=== PATIENT | female | born 1960 ===

== ENCOUNTER 2017-04-01 20:38 | Inpatient (IN) | payer MEDICAID, OTHER ==
[2017-04-01 21:16] LABS: BASO # 0.1 K/uL (0.0-0.2); BASO % 1.2 % (0.0-2.0); EOS # 0.3 K/uL (0.0-0.7); EOS % 2.7 % (0.0-4.0); HEMATOCRIT 43.7 % (34.0-47.0); LYMPH # 3.1 K/uL (1.0-4.3); LYMPH % 32.6 % (20.0-40.0); MEAN CELL VOLUME 88.2 fl (81.0-99.0); MEAN CORPUSCULAR HEMOGLOBIN 29.5 pg (27.0-31.0); MEAN CORPUSCULAR HGB CONC 33.4 g/dL (33.0-37.0); MEAN PLATELET VOLUME 9.5 fl (7.2-11.7); MONO # 0.9 K/uL (0.0-0.8); MONO % 9.3 % (0.0-10.0); NEUT # 5.1 K/uL (1.8-7.0); NEUT % 54.2 % (50.0-75.0); NRBC % 0.3 % (0.0-0.0); RED CELL DISTRIBUTION WIDTH 13.4 % (11.5-14.5); WHITE BLOOD COUNT 9.5 K/uL (4.8-10.8)
[2017-04-01 21:32] LABS: ALB/GLOB RATIO 1.4 (1.0-2.1); ALKALINE PHOSPHATASE 124 U/L (38-126); ALT/SGPT 53 U/L (9-52); AST/SGOT 38 U/L (14-36); BILIRUBIN,TOTAL 0.4 mg/dl (0.2-1.3); BLOOD UREA NITROGEN 17 mg/dl (7-17); CALCIUM 9.6 mg/dL (8.4-10.2); CARBON DIOXIDE 22 mmol/L (22-30); CHLORIDE 107 mmol/L (98-107); CHOLESTEROL 171 mg/dL (0-199); GFR AFRICAN-AMERICAN > 60; GLUCOSE,RANDOM 116 mg/dL (65-105); SODIUM 145 mmol/l (132-148)
[2017-04-01 21:33] LABS: PARTIAL THROMBOPLASTIN TIME 32.7 Seconds (25.6-37.1)
--- NOTE | 2017-04-01 22:07 | ED PDOC ---
"HPI:STROKE - Time Time: 20:49 - Historian Historian: Patient, Family - Chief Complaint Chief Complaint: Facial droop (right sided), other (Headache) - Onset Date: 03/31/17 Onset: Yesterday (Yesterday evening) - Timing Timing: Currently Symptomatic - Notes: Notes:: Patient is a 56 y/o female with a past medical history of hypertension for which she is not currently taking medications, who presents to the ED complaining of headache and right sided facial droop since last night. She denies any motor weakness or sensory deficits in extremities, vision changes, speech changes, chest pain, or shortness of breath. PMD: Non [facility] Provider, NIHSS Stroke Scale - Date/Time Evaluation Performed Date Performed: 04/01/17 When Was NIHSS Performed: Baseline - How Severe is the Stroke Level of Consciousness: 0=Alert LOC to Questions: 0=Both comments correct LOC to commands: 0=Obeys both correctly Best Gaze: 0=Normal Visual: 0=No visual loss Facial: 2=Partial (lower face paralysis) Motor Arm - Left: 0=No drift Motor Arm - Right: 0=No drift Motor Leg - Left: 0=No drift Motor Leg - Right: 0=No drift Limb Ataxia: 0=Absent Sensory: 0=Normal Best Language: 0=No aphasia Dysarthia: 0=Normal articulation Extinction & Inattention (Neglect): 0=Normal, no object Score: 2 rTPA Inclusion/Exclusion - Refusal of Treatment Patient Refused Treatment: No - Inclusion Criteria for Altepase Patient is 18 years or Older: Yes The Clinical Diagnosis of Ischemic Stroke That is Causing a Potentially Disabling Neurological Deficit: No Time of Onset is Well Established to be Less Than 270 Minute Before Treatment Would Begin: No Risk/Benefit Discussed With Patient/Family Member Present: No Past Medical History Reviewed: Historical Data, Nursing Documentation, Vital Signs Vital Signs: Last Vital Signs Temp 98.1 F 04/01/17 20:49 Pulse 69 04/01/17 21:25 Resp 16 04/01/17 21:25 BP 174/70 H 04/01/17 21:25 Pulse Ox 100 04/01/17 21:25 - Medical History PMH: HTN - Surgical History Surgical History: No Surg Hx - Family History Family History: States: No Known Family Hx - Social History Current smoker - smoking cessation education provided: No Alcohol: None Drugs: Denies - Home Medications Home Medications: Ambulatory Orders Medication Instructions Recorded No Known Home Med 04/01/17 - Allergies Allergies/Adverse Reactions: Allergies Allergy/AdvReac Type Severity Reaction Status Date / Time No Known Allergies Allergy Verified 04/01/17 20:52 Review of Systems ROS Statement: Except As Marked, All Systems Reviewed And Found Negative Eyes: Negative for: Vision Change Cardiovascular: Negative for: Chest Pain Respiratory: Negative for: Shortness of Breath Neurological: Positive for: Headache, Other (Facial Droop, negative motor and sensory deficits in extremities). Negative for: Weakness, Change in Speech Physical Exam - Reviewed Nursing Documentation Reviewed: Yes Vital Signs Reviewed: Yes - Physical Exam Appears: Positive for: Non-toxic, No Acute Distress Head Exam: Positive for: ATRAUMATIC, NORMAL INSPECTION, NORMOCEPHALIC Skin: Positive for: Normal Color, Warm, Dry Eye Exam: Positive for: Normal appearance, EOMI, PERRL Neck: Positive for: Normal, Painless ROM, Supple Cardiovascular/Chest: Positive for: Regular Rate, Rhythm, Murmur Respiratory: Positive for: Normal Breath Sounds. Negative for: Respiratory Distress Gastrointestinal/Abdominal: Positive for: Normal Exam, Soft. Negative for: Tenderness Back: Positive for: Normal Inspection. Negative for: L CVA Tenderness, R CVA Tenderness, Vertebral Tenderness Extremity: Positive for: Normal ROM. Negative for: Pedal Edema, Deformity Neurologic/Psych: Positive for: Alert, rent collector II-XII (normal and intact), Oriented (x3), Gait (normal gait), Facial Droop (Right sided), Other (Right eyelid lag, able to furrow eyebrow on right side). Negative for: Motor/Sensory Deficits - Laboratory Results Result Diagrams: 04/01/17 21:05 04/01/17 21:05 - ECG O2 Sat by Pulse Oximetry: 100 (RA) Pulse Ox Interpretation: Normal Medical Decision Making Medical Decision Making: Time: 2053 Initial Impression: Hannah palsy vs Cerebrovascular accident Initial Plan: -Type and screen -CT Head W/O Contrast -EKG -CMP -Hemoglobin A1C -Lipid Panel -Troponin -CBC -Patient/PTT -Chest XR -Patient Access Associate -IV Insertion -ED Obtain Labs -Glucose, Blood, POC -Nursing Swallow Screen -Vital signs Q15Min 20:24 CT Head Results FINDINGS: Brain: Unremarkable. No hemorrhage. No significant white matter disease. No edema. Ventricles: Unremarkable. No ventriculomegaly. Bones/joints: Unremarkable. No acute fracture. Soft tissues: Unremarkable. Sinuses: Unremarkable as visualized. No acute sinusitis. Mastoid air cells: Unremarkable as visualized. No mastoid effusion. RICARDO CARVAJAL | Preliminary Radiology Report CASHIER RECEPTIONIST (QA) DISCREPANCY? If there is a discrepancy between the preliminary and final interpretation, please notify ad via [email or web address]. If you do not have access to our QA portal, call our QA team at [phone] CONFIDENTIALITY STATEMENT This report is intended only for the use of the referring physician, and only in accordance with law, If you received this in error, call [phone] Page 2 of 2 IMPRESSION: No acute intracranial finding. 21:51 -Call Neurology consult -Admit -Inpatient/Obs -Neurology consult routine -MRI Brain W & WO contrast -Aspirin 162 mg PO -Acetaminophen 650mg PO -Case discussed with Dr. Vargas who agrees that case is possibly Mojica's Palsy, but given hypertension will require MRI.- -Patient to be admitted to Dr. Li in observation telemetry Scribe Attestation: Documented by Jessica Stanley, acting as a scribe for Dani Phan MD Provider Scribe Attestation: All medical record entries made by the Scribe were at my direction and personally dictated by me. I have reviewed the chart and agree that the record accurately reflects my personal performance of the history, physical exam, medical decision making, and the department course for this patient. I have also personally directed, reviewed, and agree with the discharge instructions and disposition. Disposition - Clinical Impression Clinical Impression: Facial droop - Patient ED Disposition Is Patient to be Admitted: Yes - Disposition Disposition Time: 21:57 Condition: STABLE - Pt Status Changed To: Hospital Disposition Of: Observation"
--- NOTE | 2017-04-01 22:08 | CP.PCM.HP ---
History of Present Illness - History of Present Illness History of Present Illness: PCP: None Chief Complaint: Headache and right facial droop HPI: 56 years old female with hx of HTN, non compliant with medication comes with 2 days of continuous right sided headache with associated drooping of the right side of the face, with numbness of the right side tongue with no tasting of the food at that section. The right eye is dry with pain to the anterior region of the right ear along with the ear itself. She also refers some burning pain to the upper right back radiating to the right side of the head and the right ear.No weakness to the upper nor lower extremities, no nausea , vomits, fever, Chest pain. in the ED the NIHSS score was 2. PMH: HTN, Noncompliance with medication PSH: No Surgical Hx SH: No Illegal drug use; No Smoking of Cigarettes; No Alcohol use; Live with family FH: States: No Known Family Hx Allergies: NKDA Medication: None Present on Admission - Present on Admission Any Indicators Present on Admission: No History of DVT/PE: No History of Uncontrolled Diabetes: No Urinary Catheter: No Decubitus Ulcer Present: No Review of Systems - Constitutional Constitutional: Headache. absent: Anorexia, Chills, Fatigue, Fever, Lethargy, Weakness - EENT Eyes: Requires Corrective Lenses. absent: Diplopia, Floaters, Sees Flashes Ears: Ear Pain. absent: Decreased Hearing, Tinnitus Nose/Mouth/Throat: absent: Epistaxis, Nasal Congestion, Nasal Discharge Additional comments: Pain to the right ear and the Anterior to the right ear. No tast of food to the right side of the tongue - Cardiovascular Cardiovascular: absent: Chest Pain, Dyspnea, Edema - Respiratory Respiratory: absent: Cough, Dyspnea, Wheezing, Stridor - Gastrointestinal Gastrointestinal: Constipation. absent: Diarrhea, Nausea, Vomiting - Genitourinary Genitourinary: absent: Dysuria, Flank Pain, Hematuria, Urinary Frequency - Musculoskeletal Musculoskeletal: absent: Arthralgias, Back Pain, Muscle Cramps Additional comments: Burning pain from the upper right back radiating to the right head and ear. - Integumentary Integumentary: absent: Pruritus, Rash, Skin Ulcer, Sores, Striae, Swelling - Neurological Neurological: Focal Weakness, Headaches. absent: Confusion, Loss of Vision, Weakness Additional comments: Right facial weakness - Psychiatric Psychiatric: absent: Anxiety, Depression, Panic Attacks - Endocrine Endocrine: absent: Palpitations, Polydipsia, Polyphagia, Polyuria - Hematologic/Lymphatic Hematologic: absent: Easy Bleeding, Easy Bruising Past Patient History - Past Medical History & Family History Past Medical History?: Yes - Past Social History Smoking Status: Never Smoked Chewing Tobacco Use: No Cigar Use: No Alcohol: None Drugs: Denies Home Situation {Lives}: With Family - CARDIAC Hx Hypertension: Yes - PULMONARY Hx Respiratory Disorders: No - NEUROLOGICAL Hx Neurological Disorder: No - HEENT Hx HEENT Problems: No - RENAL Hx Chronic Kidney Disease: No - ENDOCRINE/METABOLIC Hx Endocrine Disorders: No - HEMATOLOGICAL/ONCOLOGICAL Hx Blood Disorders: No - INTEGUMENTARY Hx Dermatological Problems: No - MUSCULOSKELETAL/RHEUMATOLOGICAL Hx Musculoskeletal Disorders: No - GASTROINTESTINAL Hx Gastrointestinal Disorders: No - GENITOURINARY/GYNECOLOGICAL Hx Genitourinary Disorders: No - PSYCHIATRIC Hx Psychophysiologic Disorder: No Hx Substance Use: No - SURGICAL HISTORY Hx Surgeries: No - ANESTHESIA Hx Anesthesia: No Meds Allergies/Adverse Reactions: Allergies Allergy/AdvReac Type Severity Reaction Status Date / Time No Known Allergies Allergy Verified 04/01/17 20:52 Physical Exam - Constitutional Appears: No Acute Distress - Head Exam Head Exam: ATRAUMATIC, NORMAL INSPECTION, NORMOCEPHALIC - Eye Exam Eye Exam: EOMI, Normal appearance Pupil Exam: NORMAL ACCOMODATION, PERRL - ENT Exam ENT Exam: Mucous Membranes Moist, Normal Exam Additional comments: Pain to the anterior region of the right ear on palpation. The right tympanic midbrain appears to bulge outward. No rash to the right side of face nor neck - Neck Exam Neck exam: Positive for: Full Rom, Normal Inspection - Respiratory Exam Respiratory Exam: Clear to Auscultation Bilateral. absent: Rales, Rhonchi, Wheezes - Cardiovascular Exam Cardiovascular Exam: REGULAR RHYTHM, RRR, +S1, +S2 - GI/Abdominal Exam GI & Abdominal Exam: Normal Bowel Sounds, Soft. absent: Mass, Organomegaly, Tenderness - Rectal Exam Rectal Exam: Deferred - Extremities Exam Extremities exam: Positive for: full ROM, normal inspection. Negative for: joint swelling Additional comments: Right knee pain, no edema - Back Exam Back exam: NORMAL INSPECTION. absent: CVA tenderness (L), CVA tenderness (R) - Neurological Exam Neurological exam: Alert, CN II-XII Intact, Oriented x3, Reflexes Normal - Psychiatric Exam Psychiatric exam: Normal Affect, Normal Mood - Skin Skin Exam: Dry, Intact, Normal Color, Warm Results - Vital Signs Recent Vital Signs: Last Vital Signs Temp 98.1 F 04/01/17 20:49 Pulse 69 04/01/17 21:25 Resp 16 04/01/17 21:25 BP 174/70 H 04/01/17 21:25 Pulse Ox 100 04/01/17 22:07 - Labs Result Diagrams: 04/01/17 21:05 04/01/17 21:05 Labs: Laboratory Results - last 24 hr 04/01/17 04/01/17 04/01/17 21:05 21:05 21:05 WBC 9.5 RBC 4.96 Hgb 14.6 Hct 43.7 MCV 88.2 MCH 29.5 MCHC 33.4 RDW 13.4 Plt Count 275 MPV 9.5 Neut % (Auto) 54.2 Lymph % (Auto) 32.6 [place] % (Auto) 9.3 Eos % (Auto) 2.7 Baso % (Auto) 1.2 Neut # 5.1 Lymph # 3.1 [place] # 0.9 H Eos # 0.3 Baso # 0.1 PT 10.6 INR 0.9 APTT 32.7 Sodium 145 Potassium 4.0 Chloride 107 Carbon Dioxide 22 Anion Gap 21 H BUN 17 Creatinine 0.7 Est GFR ( Amer) > 60 Est GFR (Non-Af Amer) > 60 Random Glucose 116 H Calcium 9.6 Total Bilirubin 0.4 AST 38 H ALT 53 H Alkaline Phosphatase 124 Troponin I < 0.0120 Total Protein 8.0 Albumin 4.6 Globulin 3.3 Albumin/Globulin Ratio 1.4 Triglycerides 244 H Cholesterol 171 LDL Cholesterol Direct 101 HDL Cholesterol 47 - Imaging and Cardiology CT scan - head Status: Image reviewed by me, Report reviewed by me Additional comment: FINDINGS: Brain: Unremarkable. No hemorrhage. No significant white matter disease. No edema. Ventricles: Unremarkable. No ventriculomegaly. Bones/joints: Unremarkable. No acute fracture. Soft tissues: Unremarkable. Sinuses: Unremarkable as visualized. No acute sinusitis. Mastoid air cells: Unremarkable as visualized. No mastoid effusion. IMPRESSION: No acute intracranial finding. Chest x-ray Status: Image reviewed by me Additional comment: Poor inspiration No infiltrate Assessment & Plan - Assessment and Plan (Free Text) Assessment: #. Accelerating Hypertension #. Right facial Droop #. Headache Plan: 56 years old female with hx of HTN, non compliant with medication comes with 2 days of continuous right sided headache with associated drooping of the right side of the face, with numbness of the right side tongue with no tasting of the food at that section. The right eye is dry with pain to the anterior region of the right ear along with the ear itself. #. Accelerating Hypertension in patient who is noncompliant with medication - labetalol 10 mg IV ordered. - Norvasc 5mg Daily - follow Blood Pressure #. 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 Headache probably due to the Hypertension and thee Mojica's Palsy - Treat HTN and Mojica's palsy - Tylenol #. DVT Prophylaxis with Lovenox #. Code Status: Full - Date & Time Date: 04/01/17 Time: 22:08
[2017-04-01] MEDS ORDERED: Labetalol 5 mg/ml Inj 20ML IVP STA (23:02)
[2017-04-02] MEDS ORDERED: Influenza Vaccine 18yr & older 0.5 ML/45 MCG SYR IM ONE (06:30)
[2017-04-02] MEDS ORDERED: Pneumococcal 23-Valent Vaccine IM ONE (06:30)
[2017-04-02 07:25] LABS: BASO % 0.4 % (0.0-2.0); EOS % 0.1 % (0.0-4.0); HEMATOCRIT 42.7 % (34.0-47.0); LYMPH # 1.3 K/uL (1.0-4.3); MEAN CELL VOLUME 88.1 fl (81.0-99.0); MEAN CORPUSCULAR HEMOGLOBIN 29.8 pg (27.0-31.0); MEAN CORPUSCULAR HGB CONC 33.8 g/dL (33.0-37.0); MEAN PLATELET VOLUME 9.5 fl (7.2-11.7); MONO # 0.2 K/uL (0.0-0.8); MONO % 1.6 % (0.0-10.0); NEUT # 7.9 K/uL (1.8-7.0); NEUT % 83.9 % (50.0-75.0); NRBC % 0.2 % (0.0-0.0); RED CELL DISTRIBUTION WIDTH 13.5 % (11.5-14.5); WHITE BLOOD COUNT 9.4 K/uL (4.8-10.8)
[2017-04-02 07:40] LABS: BLOOD UREA NITROGEN 13 mg/dl (7-17); CALCIUM 9.4 mg/dL (8.4-10.2); CARBON DIOXIDE 24 mmol/L (22-30); CHLORIDE 107 mmol/L (98-107); GFR AFRICAN-AMERICAN > 60; GLUCOSE,RANDOM 140 mg/dL (65-105); POTASSIUM 3.8 MMOL/L (3.6-5.0); SODIUM 146 mmol/l (132-148)
[2017-04-02 08:08] LABS: THYROID STIMULATING HORMONE 5.22 mIU/ML (0.46-4.68)
--- NOTE | 2017-04-02 08:35 | CT ---
PROCEDURE: CT HEAD WITHOUT CONTRAST. HISTORY: code stroke COMPARISON: None available. TECHNIQUE: Axial computed tomography images were obtained through the head/brain without intravenous contrast. Radiation dose: Total exam DLP = 817.28 mGy-cm. This CT exam was performed using one or more of the following dose reduction techniques: Automated exposure control, adjustment of the mA and/or kV according to patient size, and/or use of iterative reconstruction technique. FINDINGS: HEMORRHAGE: No intracranial hemorrhage. BRAIN: No mass effect or edema. The damon-white matter differentiation appears intact. Please note that MRI with diffusion imaging is more sensitive in the detection of acute ischemic event. VENTRICLES: No hydrocephalus. CALVARIUM: Unremarkable. PARANASAL SINUSES: Unremarkable as visualized. No significant inflammatory changes. MASTOID AIR CELLS: Unremarkable as visualized. No inflammatory changes. OTHER FINDINGS: None. IMPRESSION: No acute intracranial pathology identified. Preliminary impression was provided by virtual radiologic.
[2017-04-02] MEDS: Enoxaparin 40 mg Syringe SC SCH (08:54)
--- NOTE | 2017-04-02 09:25 | RAD ---
HISTORY: facial droop, weakness COMPARISON: None available. TECHNIQUE: Chest, one view. FINDINGS: Examination limited by habitus and hypoinflation. LUNGS: Mild interstitial prominence appears consistent with vascular crowding due to hypoinflation rather than mild pulmonary venous congestion. Mild biapical pleural thickening. No focal consolidation. Please note that chest x-ray has limited sensitivity for the detection of pulmonary masses. PLEURA: No significant pleural effusion identified. No definite pneumothorax . CARDIOVASCULAR: Heart size appears top normal. OSSEOUS STRUCTURES: No acute osseous abnormality identified. VISUALIZED UPPER ABDOMEN: Unremarkable. OTHER FINDINGS: None. IMPRESSION: Mild interstitial prominence appears consistent with vascular crowding due to hypoinflation rather than mild pulmonary venous congestion. Mild biapical pleural thickening.
--- NOTE | 2017-04-02 11:25 | CP.PCM.PN ---
Subjective - Date & Time of Evaluation Date of Evaluation: 04/02/17 Time of Evaluation: 11:00 - Subjective Subjective: patient was seen and examined bedside. Complains of headache over right side of her head , frontal Denies any visual problems, earache, CP, SOB With right facial droop and right pre auricular area increased sensitivity to touch and pain BP slightly elevated 166/79,afebrile Objective - Vital Signs/Intake and Output Vital Signs (last 24 hours): Temp Pulse Resp BP Pulse Ox 98.3 F 79 20 177/80 H 97 04/02/17 08:00 04/02/17 08:53 04/02/17 08:00 04/02/17 08:53 04/02/17 08:00 - Medications Medications: Current Medications Acetaminophen (Tylenol 325mg Tab) 650 mg PO Q4 PRN PRN Reason: Headache Amlodipine Besylate (Norvasc) 5 mg PO DAILY [facility] Last Admin: 04/02/17 08:53 Dose: 5 mg Enoxaparin Sodium (Lovenox) 40 mg SC DAILY [facility] PRN Reason: Protocol Last Admin: 04/02/17 08:54 Dose: 40 mg Prednisone (Prednisone Tab) 60 mg PO DAILY [facility] Stop: 04/07/17 09:01 Last Admin: 04/02/17 08:54 Dose: 60 mg - Labs Labs: 04/02/17 06:00 04/02/17 06:00 PT 10.6 Seconds (9.8-13.1) 04/01/17 21:05 INR 0.9 (0.9-1.2) 04/01/17 21:05 APTT 32.7 Seconds (25.6-37.1) 04/01/17 21:05 - Constitutional Appears: Non-toxic, No Acute Distress - Head Exam Head Exam: ATRAUMATIC, NORMOCEPHALIC Additional comments: right facial droop - Eye Exam Eye Exam: EOMI, PERRL Pupil Exam: NORMAL ACCOMODATION - ENT Exam ENT Exam: Mucous Membranes Moist, Normal Exam - Neck Exam Neck Exam: Full ROM, Normal Inspection - Respiratory Exam Respiratory Exam: Clear to Ausculation Bilateral, NORMAL BREATHING PATTERN. absent: Rales, Rhonchi, Wheezes - Cardiovascular Exam Cardiovascular Exam: REGULAR RHYTHM, RRR, +S1, +S2. absent: JVD - GI/Abdominal Exam GI & Abdominal Exam: Soft, Normal Bowel Sounds. absent: Distended, Tenderness, Rebound - Rectal Exam Rectal Exam: Deferred - Extremities Exam Extremities Exam: Full ROM, Normal Capillary Refill, Pedal Edema. absent: Calf Tenderness, Normal Inspection - Back Exam Back Exam: NORMAL INSPECTION - Neurological Exam Neurological Exam: Alert, Awake Neuro motor strength exam: Left Upper Extremity: 5, Right Upper Extremity: 5, Left Lower Extremity: 5, Right Lower Extremity: 5 Additional comments: right facial droop increased pain and sensitivity anterior right auricular area - Psychiatric Exam Psychiatric exam: Normal Affect, Normal Mood - Skin Skin Exam: Dry, Intact, Normal Color, Warm Assessment and Plan - Assessment and Plan (Free Text) Assessment: 56 years old female with hx of HTN, non compliant with medication comes with 2 days of continuous right sided headache with associated drooping of the right side of the face, with numbness of the right side tongue with no tasting of the food at that section. The right eye is dry with pain to the anterior region of the right ear along with the ear itself. in ER patient found to have accelerated HTN and right facial droop CT head showed no acute pathology 1. Accelerated Hypertension patient is noncompliant with medication Given labetalol 10 mg IV Started Norvasc 5mg Daily monitor for now keep SBP 140 , until CVA ruled out. Will follow up MRI head 2. 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 follow up lyme titer, HSV Neurology consult with Dr Sam anderson Started on Prednisone 60 mg PO daily and Acyclovir IV F/u MRI brain to r/o CVA Started ASA Check lipid profile, TSH, HgbA1c, Vitamin B12, Vitamin D 3 Headache probably due to the Hypertension and Mojica's Palsy Treat HTN and Mojica's palsy Tylenol 4. DVT Prophylaxis SCD and early ambulation
--- NOTE | 2017-04-02 12:57 | CP.PCM.CON ---
History of Present Illness - History of Present Illness History of Present Illness: Mrs. Richard is a 56-year-old woman with a past medical history of uncontrolled hypertension, who presented to the ED complaining of right facial pain, headache and facial droop along with difficulty with eye closure on the right side. She also stated that she felt that she could not taste food on the right side of her tongue. When I saw her today, she denied headache, nausea, vomiting , other weakness, or other sensory changes. 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 Review of Systems - Review of Systems All systems: reviewed and no additional remarkable complaints except Past Patient History - Past Medical History & Family History Past Medical History?: Yes - Past Social History Smoking Status: Never Smoked - CARDIAC Hx Cardiac Disorders: Yes Hx Hypertension: Yes (NO HOME MEDS) - PULMONARY Hx Respiratory Disorders: No - NEUROLOGICAL Hx Neurological Disorder: No - HEENT Hx HEENT Problems: No - RENAL Hx Chronic Kidney Disease: No - ENDOCRINE/METABOLIC Hx Endocrine Disorders: No - HEMATOLOGICAL/ONCOLOGICAL Hx Blood Disorders: No - INTEGUMENTARY Hx Dermatological Problems: No - MUSCULOSKELETAL/RHEUMATOLOGICAL Hx Musculoskeletal Disorders: No Hx Falls: No - GASTROINTESTINAL Hx Gastrointestinal Disorders: No - GENITOURINARY/GYNECOLOGICAL Hx Genitourinary Disorders: No - PSYCHIATRIC Hx Psychophysiologic Disorder: No Hx Substance Use: No - SURGICAL HISTORY Hx Surgeries: No - ANESTHESIA Hx Anesthesia: No Meds Allergies/Adverse Reactions: Allergies Allergy/AdvReac Type Severity Reaction Status Date / Time No Known Allergies Allergy Verified 04/01/17 20:52 - Medications Medications: Current Medications Acetaminophen (Tylenol 325mg Tab) 650 mg PO Q4 PRN PRN Reason: Headache Amlodipine Besylate (Norvasc) 5 mg PO DAILY [facility] Last Admin: 04/02/17 08:53 Dose: 5 mg Enoxaparin Sodium (Lovenox) 40 mg SC DAILY [facility] PRN Reason: Protocol Last Admin: 04/02/17 08:54 Dose: 40 mg Prednisone (Prednisone Tab) 60 mg PO DAILY [facility] Stop: 04/07/17 09:01 Last Admin: 04/02/17 08:54 Dose: 60 mg Physical Exam - Constitutional Appears: Well - Head Exam Head Exam: ATRAUMATIC, NORMAL INSPECTION, NORMOCEPHALIC - Eye Exam Eye Exam: EOMI, Normal appearance, PERRL - Neck Exam Neck exam: Positive for: Normal Inspection - Respiratory Exam Respiratory Exam: Clear to Auscultation Bilateral, NORMAL BREATHING PATTERN - Cardiovascular Exam Cardiovascular Exam: REGULAR RHYTHM, +S1, +S2 - GI/Abdominal Exam GI & Abdominal Exam: Normal Bowel Sounds, Soft. absent: Tenderness - Rectal Exam Rectal Exam: Deferred - Extremities Exam Extremities exam: Positive for: normal inspection - Back Exam Back exam: NORMAL INSPECTION - Neurological Exam Neurological exam: Alert, Normal Gait, Oriented x3, Reflexes Normal Additional comments: CN 7 palsy on the right side appears to be peripheral. Otherwise CN 2-12 are intact. Plantar responses are downgoing. Romberg is negative. - Psychiatric Exam Psychiatric exam: Normal Affect, Normal Mood Results - Vital Signs Recent Vital Signs: Last Vital Signs Temp 98.3 F 04/02/17 08:00 Pulse 79 04/02/17 08:53 Resp 20 04/02/17 08:00 BP 177/80 H 04/02/17 08:53 Pulse Ox 97 04/02/17 08:00 - Labs Result Diagrams: 04/02/17 06:00 04/02/17 06:00 Labs: Laboratory Results - last 24 hr 04/01/17 04/01/17 04/01/17 20:54 21:05 21:05 WBC 9.5 RBC 4.96 Hgb 14.6 Hct 43.7 MCV 88.2 MCH 29.5 MCHC 33.4 RDW 13.4 Plt Count 275 MPV 9.5 Neut % (Auto) 54.2 Lymph % (Auto) 32.6 [place] % (Auto) 9.3 Eos % (Auto) 2.7 Baso % (Auto) 1.2 Neut # 5.1 Lymph # 3.1 [place] # 0.9 H Eos # 0.3 Baso # 0.1 PT INR APTT Sodium 145 Potassium 4.0 Chloride 107 Carbon Dioxide 22 Anion Gap 21 H BUN 17 Creatinine 0.7 Est GFR ( Amer) > 60 Est GFR (Non-Af Amer) > 60 POC Glucose (mg/dL) 110 Random Glucose 116 H Calcium 9.6 Total Bilirubin 0.4 AST 38 H ALT 53 H Alkaline Phosphatase 124 Troponin I < 0.0120 Total Protein 8.0 Albumin 4.6 Globulin 3.3 Albumin/Globulin Ratio 1.4 Triglycerides 244 H Cholesterol 171 LDL Cholesterol Direct 101 HDL Cholesterol 47 TSH 3rd Generation Blood Type Antibody Screen BBK History Checked 04/01/17 04/01/17 04/02/17 21:05 21:05 06:00 WBC 9.4 RBC 4.85 Hgb 14.4 Hct 42.7 MCV 88.1 MCH 29.8 MCHC 33.8 RDW 13.5 Plt Count 257 MPV 9.5 Neut % (Auto) 83.9 H Lymph % (Auto) 14.0 L [place] % (Auto) 1.6 Eos % (Auto) 0.1 Baso % (Auto) 0.4 Neut # 7.9 H Lymph # 1.3 [place] # 0.2 Eos # 0.0 Baso # 0.0 PT 10.6 INR 0.9 APTT 32.7 Sodium Potassium Chloride Carbon Dioxide Anion Gap BUN Creatinine Est GFR ( Amer) Est GFR (Non-Af Amer) POC Glucose (mg/dL) Random Glucose Calcium Total Bilirubin AST ALT Alkaline Phosphatase Troponin I Total Protein Albumin Globulin Albumin/Globulin Ratio Triglycerides Cholesterol LDL Cholesterol Direct HDL Cholesterol TSH 3rd Generation Blood Type O POSITIVE Antibody Screen Negative BBK History Checked No verified bt 04/02/17 06:00 WBC RBC Hgb Hct MCV MCH MCHC RDW Plt Count MPV Neut % (Auto) Lymph % (Auto) [place] % (Auto) Eos % (Auto) Baso % (Auto) Neut # Lymph # [place] # Eos # Baso # PT INR APTT Sodium 146 Potassium 3.8 Chloride 107 Carbon Dioxide 24 Anion Gap 19 BUN 13 Creatinine 0.6 L Est GFR ( Amer) > 60 Est GFR (Non-Af Amer) > 60 POC Glucose (mg/dL) Random Glucose 140 H Calcium 9.4 Total Bilirubin AST ALT Alkaline Phosphatase Troponin I Total Protein Albumin Globulin Albumin/Globulin Ratio Triglycerides Cholesterol LDL Cholesterol Direct HDL Cholesterol TSH 3rd Generation 5.22 H Blood Type Antibody Screen BBK History Checked - Imaging and Cardiology CT scan - head Status: Image reviewed by me, Report reviewed by me (Normal CT head.) Assessment & Plan (1) Facial droop Assessment and Plan: 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 Could be related to viral infection (check for Lymes, Zoster, HSV I/II). I recommend obtaining MRI of the brain to rule out infarct. Start Prednisone taper (60 mg daily for 5 days, then taper over 5 days for a total of 10 days), and Valacyclovir (1000 mg PO TID for 5 days) and check HSV PCR. If HSV is negative, may then D/C Valacyclovir. If MRI is positive for new infarct, then we will continue with a stroke work- up. For now the patient may be kept on telemetry and will start aspirin 81 mg PO daily. Check lipid panel, HbA1c, TSH, B12, folate and vitamin D levels. Thank you. Status: Acute Priority: High
--- NOTE | 2017-04-02 19:45 | CARD ---
APPROVED REPORT EKG Measurement Heart [id number] <Conclusion> Normal sinus rhythm Possible Left atrial enlargement Borderline ECG
[2017-04-02 21:46] LABS: THYROID STIMULATING HORMONE 2.19 mIU/ML (0.46-4.68)
[2017-04-03] MEDS: Acyclovir 500 MG in Sodium Chloride 0.9% 100 ML IVPB SCH ×2 (00:17→10:25)
[2017-04-03 05:34] LABS: HEMATOCRIT 40.6 % (34.0-47.0); MEAN CELL VOLUME 88.3 fl (81.0-99.0); MEAN CORPUSCULAR HEMOGLOBIN 29.4 pg (27.0-31.0); MEAN CORPUSCULAR HGB CONC 33.2 g/dL (33.0-37.0); RED CELL DISTRIBUTION WIDTH 13.4 % (11.5-14.5); WHITE BLOOD COUNT 18.4 K/uL (4.8-10.8)
[2017-04-03 05:37] LABS: BLOOD UREA NITROGEN 17 mg/dl (7-17); CALCIUM 9.6 mg/dL (8.4-10.2); CARBON DIOXIDE 22 mmol/L (22-30); CHLORIDE 106 mmol/L (98-107); GFR AFRICAN-AMERICAN > 60; GLUCOSE,RANDOM 106 mg/dL (65-105); POTASSIUM 3.9 MMOL/L (3.6-5.0); SODIUM 142 mmol/l (132-148)
[2017-04-03] MEDS ORDERED: Gadodiamide 287 MG/ML VIAL (15ML) IV ONE (08:31)
--- NOTE | 2017-04-03 10:07 | MRI ---
PROCEDURE: MRI BRAIN WITH AND WITHOUT CONTRAST HISTORY: R facial droop, R lid lag COMPARISON: Head CT without contrast 04/01/2017. TECHNIQUE: Multiplanar, multisequence MR images of the brain were obtained with and without intravenous contrast enhancement. FINDINGS: HEMORRHAGE: None DWI: No evidence of an acute or early subacute infarction. BRAIN PARENCHYMA: Trace bilateral periventricular white-matter long TR hyperintensity is a function of very limited chronic microangiopathy. Rare white matter signal differentiation remains normal above below the tentorium otherwise. There is no mass effect. There is no suspicious extra-axial fluid collection. No definite acute intracranial finding. ENHANCEMENT: No abnormal intracranial enhancement. VENTRICLES: Unremarkable. No hydrocephalus. CRANIUM: Unremarkable. ORBITS: Grossly unremarkable. PARANASAL SINUSES/MASTOIDS: Clear VASCULAR SYSTEM: Skull base flow voids intact. OTHER FINDINGS: None . IMPRESSION: Trace chronic microangiopathy is appreciated in the periventricular white matter, benefit of increase soft tissue resolution on MRI as compared to CT. No evidence of acute or subacute brain infarction mass effect or hydrocephalus. Other than minimal white matter changes noted above. There is no additional pertinent finding. Post gadolinium enhanced imaging is normal.
[2017-04-03] MEDS: Enoxaparin 40 mg Syringe SC SCH (10:19)
--- NOTE | 2017-04-03 10:20 | CP.PCM.PN ---
Subjective - Date & Time of Evaluation Date of Evaluation: 04/03/17 Time of Evaluation: 10:18 - Subjective Subjective: Ms. Richard was seen and examined at the bedside. She is alert, oriented in all spheres with her left side palsy. She denies any numbness on her left side. She further denies any headache, weakness, lightheadedness. She is not in any kind of distress. There is no untoward events overnight. Objective - Vital Signs/Intake and Output Vital Signs (last 24 hours): Temp Pulse Resp BP Pulse Ox 98 F 70 18 173/78 H 99 04/03/17 08:00 04/03/17 08:00 04/03/17 08:00 04/03/17 08:00 04/03/17 08:00 - Medications Medications: Current Medications Acetaminophen (Tylenol 325mg Tab) 650 mg PO Q4 PRN PRN Reason: Headache Last Admin: 04/03/17 00:15 Dose: 650 mg Acetaminophen (Tylenol 325mg Tab) 650 mg PO Q4 PRN PRN Reason: Headache Amlodipine Besylate (Norvasc) 10 mg PO DAILY [facility] Enoxaparin Sodium (Lovenox) 40 mg SC DAILY [facility] PRN Reason: Protocol Last Admin: 04/02/17 08:54 Dose: 40 mg Acyclovir 500 mg/ Sodium (Chloride) 100 mls @ 100 mls/hr IVPB Q8 [facility] PRN Reason: Protocol Last Admin: 04/03/17 00:17 Dose: 100 mls/hr Prednisone (Prednisone Tab) 60 mg PO DAILY [facility] Stop: 04/07/17 09:01 Last Admin: 04/02/17 08:54 Dose: 60 mg - Labs Labs: 04/03/17 04:30 04/03/17 04:30 PT 10.6 Seconds (9.8-13.1) 04/01/17 21:05 INR 0.9 (0.9-1.2) 04/01/17 21:05 APTT 32.7 Seconds (25.6-37.1) 04/01/17 21:05 - Constitutional Appears: Well, No Acute Distress - Head Exam Head Exam: ATRAUMATIC, NORMAL INSPECTION, NORMOCEPHALIC - Neurological Exam Neurological Exam: Alert, Awake, Normal Gait, Oriented x3 Neuro motor strength exam: Left Upper Extremity: 5, Right Upper Extremity: 5, Left Lower Extremity: 5, Right Lower Extremity: 5 Additional comments: Sensation remains intact, with other CN are intact except for CN VII. Assessment and Plan (1) Facial droop Assessment & Plan: Case discussed with Dr. Vargas, continue all current medical regimen, will follow up MRI result. Status: Acute
--- NOTE | 2017-04-03 11:15 | CP.PCM.DIS ---
Provider - Provider Date of Admission: 04/02/17 18:15 Attending physician: Bart Li Primary care physician: none Consults: neurology consult Time Spent in preparation of Discharge (in minutes): 20 Hospital Course - Lab Results Lab Results: Most Recent Lab Values WBC 18.4 K/uL (4.8-10.8) H D 04/03/17 04:30 RBC 4.60 Mil/uL (3.80-5.20) 04/03/17 04:30 Hgb 13.5 g/dL (12.0-16.0) 04/03/17 04:30 Hct 40.6 % (34.0-47.0) 04/03/17 04:30 MCV 88.3 fl (81.0-99.0) 04/03/17 04:30 MCH 29.4 pg (27.0-31.0) 04/03/17 04:30 MCHC 33.2 g/dL (33.0-37.0) 04/03/17 04:30 RDW 13.4 % (11.5-14.5) 04/03/17 04:30 Plt Count 291 K/uL (130-400) 04/03/17 04:30 MPV 9.5 fl (7.2-11.7) 04/02/17 06:00 Neut % (Auto) 83.9 % (50.0-75.0) H 04/02/17 06:00 Lymph % (Auto) 14.0 % (20.0-40.0) L 04/02/17 06:00 [place] % (Auto) 1.6 % (0.0-10.0) 04/02/17 06:00 Eos % (Auto) 0.1 % (0.0-4.0) 04/02/17 06:00 Baso % (Auto) 0.4 % (0.0-2.0) 04/02/17 06:00 Neut # 7.9 K/uL (1.8-7.0) H 04/02/17 06:00 Lymph # 1.3 K/uL (1.0-4.3) 04/02/17 06:00 [place] # 0.2 K/uL (0.0-0.8) 04/02/17 06:00 Eos # 0.0 K/uL (0.0-0.7) 04/02/17 06:00 Baso # 0.0 K/uL (0.0-0.2) 04/02/17 06:00 PT 10.6 Seconds (9.8-13.1) 04/01/17 21:05 INR 0.9 (0.9-1.2) 04/01/17 21:05 APTT 32.7 Seconds (25.6-37.1) 04/01/17 21:05 Sodium 142 mmol/l (132-148) 04/03/17 04:30 Potassium 3.9 MMOL/L (3.6-5.0) 04/03/17 04:30 Chloride 106 mmol/L (98-107) 04/03/17 04:30 Carbon Dioxide 22 mmol/L (22-30) 04/03/17 04:30 Anion Gap 18 (10-20) 04/03/17 04:30 BUN 17 mg/dl (7-17) 04/03/17 04:30 Creatinine 0.7 mg/dL (0.7-1.2) 04/03/17 04:30 Est GFR ( Amer) > 60 04/03/17 04:30 Est GFR (Non-Af Amer) > 60 04/03/17 04:30 POC Glucose (mg/dL) 110 mg/dL (65-110) 04/01/17 20:54 Random Glucose 106 mg/dL (65-105) H 04/03/17 04:30 Hemoglobin A1c 5.8 % (4.2-6.5) 04/01/17 21:05 Calcium 9.6 mg/dL (8.4-10.2) 04/03/17 04:30 Total Bilirubin 0.4 mg/dl (0.2-1.3) 04/01/17 21:05 AST 38 U/L (14-36) H 04/01/17 21:05 ALT 53 U/L (9-52) H 04/01/17 21:05 Alkaline Phosphatase 124 U/L (38-126) 04/01/17 21:05 Troponin I < 0.0120 ng/mL (0.00-0.120) 04/01/17 21:05 Total Protein 8.0 G/DL (6.3-8.2) 04/01/17 21:05 Albumin 4.6 g/dL (3.5-5.0) 04/01/17 21:05 Globulin 3.3 gm/dL (2.2-3.9) 04/01/17 21:05 Albumin/Globulin Ratio 1.4 (1.0-2.1) 04/01/17 21:05 Triglycerides 89 mg/DL (0-149) D 04/02/17 20:00 Cholesterol 197 mg/dL (0-199) 04/02/17 20:00 LDL Cholesterol Direct 126 mg/dL (0-129) 04/02/17 20:00 HDL Cholesterol 59 MG/DL (30-70) 04/02/17 20:00 Vitamin B12 784 pg/mL (239-931) 04/02/17 20:00 TSH 3rd Generation 2.19 mIU/ML (0.46-4.68) 04/02/17 20:00 RPR Nonreactive (NONREACTIVE) 04/02/17 06:00 HIV 1&2 Antibody Screen Reactive (NEGATIVE) 04/02/17 06:00 Blood Type O POSITIVE 04/01/17 21:05 Blood Type Confirm O POSITIVE 04/02/17 20:00 Antibody Screen Negative 04/01/17 21:05 BBK History Checked No verified bt 04/01/17 21:05 - Hospital Course Hospital Course: 56 years old female with hx of HTN, non compliant with medication comes with 2 days of continuous right sided headache ,associated with drooping of the right side of the face, with numbness of the right side tongue with no tasting of the food at that section. The right eye is dry with pain to the anterior region of the right ear along with the ear itself. in ER patient found to have accelerated HTN 218/81 and right facial droop CT head showed no acute pathology neurology was consulted and patient admitted to telemetry Initial impression was [place] palsy so she was started on prednisone 60 mg Po daily and acyclovir Iv. Work up for Lyme, HSV PRC were sent MRI of the head showed no CVA She was started on Norvasc and hydralazine po for BP control discussed with neurology. 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 HSV and lyme titre will be back in 4-5 days. Will discharge patient on Prednisone 60 mg po daily for 5 days 9 total than will bhaskar for 5 days and Valacyclovir 1000 mg po TID for 5 days patient counselled to be compliant with treatment and follow up with [facility] in 1 week Return to hospital if experiences worsening of symptoms or visual changes if no improvement on facial droop after acute phase might benefit from physical therapy for facial muscles 1. Accelerated Hypertension patient is noncompliant with medication Given labetalol 10 mg IV Started Norvasc 10 mg Daily and hydralazine 10 mg po TID counselled on compliance with treatment 2. 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 lyme titer, HSV-- sent but not resulted yert MRI showed no CVA Neurology consult with Dr Sam anderson Started on Prednisone 60 mg PO daily for 5 days than bhaskar for other 5 Started on acyclovir in hospital and will d/c on valacyclovir for 5 days Follow up with [facility] in 1 week. Will need vitamin D replacement therapy to be started 3 Headache probably due to the Hypertension and Mojica's Palsy Treat HTN and Mojica's palsy Tylenol 4. DVT Prophylaxis SCD and early ambulation 5. Vitamin D deficiency will need to be started on Vitamin d supplements when follows up with [facility] 6. Leukocytosis steroid induced Discharge Exam - Head Exam Head Exam: ATRAUMATIC, NORMAL INSPECTION, NORMOCEPHALIC - Eye Exam Eye Exam: EOMI, PERRL Pupil Exam: NORMAL ACCOMODATION Additional comments: right facial droop - ENT Exam ENT Exam: Mucous Membranes Moist, Normal Exam - Neck Exam Neck exam: Full Rom, Normal Inspection - Respiratory Exam Respiratory Exam: Clear to PA & Lateral, NORMAL BREATHING PATTERN. absent: Rales, Rhonchi, Wheezes - Cardiovascular Exam Cardiovascular Exam: REGULAR RHYTHM, RRR, +S1, +S2. absent: JVD - GI/Abdominal Exam GI & Abdominal Exam: Normal Bowel Sounds, Soft. absent: Distended, Guarding, Rebound, Tenderness - Rectal Exam Rectal Exam: Deferred - Extremities Exam Extremities exam: normal capillary refill, normal inspection, pedal pulses present - Back Exam Back exam: NORMAL INSPECTION - Neurological Exam Neurological exam: Alert, Oriented x3, Reflexes Normal Additional comments: right facial droop - Psychiatric Exam Psychiatric exam: Normal Affect, Normal Mood - Skin Skin Exam: Dry, Intact, Normal Color, Warm Discharge Plan - Discharge Medications Prescriptions: amLODIPine [Norvasc] 10 mg PO DAILY #30 tab Cholecalciferol [Vitamin D] 1,000 iu PO DAILY #30 tab Gabapentin [Neurontin] 100 mg PO HS #30 capsule hydrALAZINE [Apresoline] 10 mg PO TID #90 tab predniSONE [predniSONE Tab] 60 mg PO DAILY #17 tab Valacyclovir HCl [Valacyclovir] 1,000 mg PO TID #15 tablet - Follow Up Plan Condition: STABLE Disposition: HOME/ ROUTINE Patient education suggested?: Yes Instructions: Heart Healthy Diet (DC), Chronic Hypertension (DC), Mojica Palsy ( DC) Referrals: [facility] [Outside]
[2017-04-03 11:43] VITALS: BP 156/79
[2017-04-03 12:27] VITALS: PULSE 66; RESP 20; TEMP 97.7; O2SAT 97
[2017-04-03 12:28] LABS: FOLATE 7.6 ng/mL
== END 2017-04-03 16:00 | disposition home or self-care (01) | DRG 74 ==
LOC: H.ER 20:38 → H.ERHOLD 21:56 → H.TEL 04-02 00:56 → OBSVTOIN 04-02 18:15
PROVIDERS: ADMIT Internal Medicine; ATTEND Internal Medicine
PROC: 3E0234Z Introduction of Serum, Toxoid and Vaccine into Muscle, Percutaneous Approach (ICD-10-PCS; principal; 2017-04-02)
DX: G51.0 Bell's palsy (principal); I10 Essential (primary) hypertension; E55.9 Vitamin D deficiency, unspecified; D72.829 Elevated white blood cell count, unspecified; T38.0X5A Adverse effect of glucocorticoids and synthetic analogues, initial encounter; Z91.14 Patient's other noncompliance with medication regimen; Z23 Encounter for immunization